=== PATIENT | female | born 1990 | race Caucasian/White ===

== ENCOUNTER 2017-08-25 12:00 | Inpatient (IN) | payer BC, MEDICAID, OTHER ==
[2017-08-25] MEDS ORDERED: SODIUM CHLORIDE 0.9% 1,000 ML IV STA (12:41)
--- NOTE | 2017-08-25 13:42 | ED ---
General Adult HPI - General Chief complaint: Psychiatric Symptoms Stated complaint: mental health Time Seen by Provider: 08/25/17 12:29 Source: patient, RN notes reviewed Mode of arrival: ambulatory Limitations: no limitations - History of Present Illness Initial comments: Patient's 27-year-old female presented to the emergency room today with friends. Friends states that he went to patient's house and was disheveled and patient was talking about paranoid delusions about people following her. Patient mitts that she's not been taking her medications. She admits that she' s been more confused lately. She states she's never had episodes like this in the past. She denies any cough, or cold. Denies any headaches. Denies any nausea, vomiting, diarrhea. Patient denies any pain. - Related Data Home Medications Medication Instructions Recorded Confirmed Ibuprofen [Motrin Ib] 400 mg PO Q6H PRN 08/25/17 08/25/17 Medroxyprogesterone Acetate 150 mg SQ Q90D 08/25/17 08/25/17 [Depo-Provera] Naproxen Sodium [Aleve] 220 - 440 mg PO DAILY PRN 08/25/17 08/25/17 Venlafaxine HCl [Effexor XR] 150 mg PO DAILY 08/25/17 08/25/17 Allergies Allergy/AdvReac Type Severity Reaction Status Date / Time No Known Allergies Allergy Verified 08/25/17 12:30 Review of Systems ROS Statement: Those systems with pertinent positive or pertinent negative responses have been documented in the HPI. ROS Other: All systems not noted in ROS Statement are negative. Past Medical History Past Medical History: No Reported History History of Any Multi-Drug Resistant Organisms: None Reported Past Surgical History: No Surgical Hx Reported Past Psychological History: Anxiety, Depression, PTSD Smoking Status: Former smoker Past Alcohol Use History: Daily Past Drug Use History: None Reported - Past Family History Mother Family Medical History: Cancer Additional Family Medical History / Comment(s): breast cancer Father Family Medical History: Prostate Disorder Additional Family Medical History / Comment(s): mental illness General Exam - General Exam Comments Initial Comments: General: The patient is awake and alert, in no distress, and does not appear acutely ill. Eye: Pupils are equal, round and reactive to light, extra-ocular movements are intact. No nystagmus. There is normal conjunctiva bilaterally. No signs of icterus. Ears, nose, mouth and throat: There are moist mucous membranes and no oral lesions. Neck: The neck is supple, there is no tenderness or JVD. Cardiovascular: There is a regular rate and rhythm. No murmur, rub or gallop is appreciated. Respiratory: Lungs are clear to auscultation, respirations are non-labored, breath sounds are equal. No wheezes, stridor, rales, or rhonchi. Gastrointestinal: Soft, non-distended, non-tender abdomen without masses or organomegaly noted. There is no rebound or guarding present. No CVA tenderness. Musculoskeletal: Normal ROM, no tenderness. Strength 5/5. Sensation intact. Pulses equal bilaterally 2+. Neurological: A&O x 3. CN II-XII intact, There are no obvious motor or sensory deficits. Coordination appears grossly intact. Speech is normal. Skin: Skin is warm and dry and no rashes or lesions are noted. Psychiatric: Cooperative. Limitations: no limitations Course Vital Signs 08/25/17 12:06 Temperature 98.6 F Pulse Rate 107 H Respiratory 16 Rate Blood Pressure 156/98 O2 Sat by Pulse 100 Oximetry Medical Decision Making - Medical Decision Making Patient's labs reviewed were unremarkable. Patient's was seen by mental health and admitted for psychiatric evaluation. - Lab Data Result diagrams: 08/26/17 10:53 08/26/17 10:53 Lab Results 08/25/17 08/25/17 08/25/17 Range/Units 12:12 12:12 13:15 WBC 7.6 (3.8-10.6) k/uL RBC 4.07 (3.80-5.40) m/uL Hgb 13.5 (11.4-16.0) gm/dL Hct 39.3 (34.0-46.0) % MCV 96.7 (80.0-100.0) fL MCH 33.1 (25.0-35.0) pg MCHC 34.2 (31.0-37.0) g/dL RDW 13.4 (11.5-15.5) % Plt Count 244 (150-450) k/uL Neutrophils % 74 % Lymphocytes % 19 % Monocytes % 5 % Eosinophils % 1 % Basophils % 0 % Neutrophils # 5.6 (1.3-7.7) k/uL Lymphocytes # 1.4 (1.0-4.8) k/uL Monocytes # 0.4 (0-1.0) k/uL Eosinophils # 0.1 (0-0.7) k/uL Basophils # 0.0 (0-0.2) k/uL Sodium (137-145) mmol/L Potassium (3.5-5.1) mmol/L Chloride (98-107) mmol/L Carbon Dioxide (22-30) mmol/L Anion Gap mmol/L BUN (7-17) mg/dL Creatinine (0.52-1.04) mg/dL Est GFR (CKD-EPI)AfAm (>60 ml/min/1.73 sqM) Est GFR (CKD-EPI)NonAf (>60 ml/min/1.73 sqM) Glucose (74-99) mg/dL Estimated Ave Glu mg/dL Hemoglobin A1c (4.0-6.0) % Calcium (8.4-10.2) mg/dL Total Bilirubin (0.2-1.3) mg/dL AST (14-36) U/L ALT (9-52) U/L Alkaline Phosphatase (38-126) U/L Total Protein (6.3-8.2) g/dL Albumin (3.5-5.0) g/dL Urine Color Yellow Urine Appearance Clear (Clear) Urine pH 7.5 (5.0-8.0) Ur Specific [place] 1.020 (1.001-1.035) Urine Protein Trace H (Negative) Urine Glucose (UA) Negative (Negative) Urine Ketones 1+ H (Negative) Urine Blood Negative (Negative) Urine Nitrite Negative (Negative) Urine Bilirubin Negative (Negative) Urine Urobilinogen 8.0 (<2.0) mg/dL Ur Leukocyte Esterase Trace H (Negative) Urine WBC 5 (0-5) /hpf Ur Squamous Epith Cells <1 (0-4) /hpf Urine Mucus Rare H (None) /hpf Urine HCG, Qual Not Detected (Not Detectd) Urine Opiates Screen Not Detected (NotDetected) Ur Oxycodone Screen Not Detected (NotDetected) Urine Methadone Screen Not Detected (NotDetected) Ur Propoxyphene Screen Not Detected (NotDetected) Ur Barbiturates Screen Not Detected (NotDetected) U Tricyclic Antidepress Not Detected (NotDetected) Ur Phencyclidine Scrn Not Detected (NotDetected) Ur Amphetamines Screen Not Detected (NotDetected) U Methamphetamines Scrn Not Detected (NotDetected) U Benzodiazepines Scrn Not Detected (NotDetected) Urine Cocaine Screen Not Detected (NotDetected) U Marijuana (THC) Screen Not Detected (NotDetected) 08/25/17 08/25/17 Range/Units 13:15 13:15 WBC (3.8-10.6) k/uL RBC (3.80-5.40) m/uL Hgb (11.4-16.0) gm/dL Hct (34.0-46.0) % MCV (80.0-100.0) fL MCH (25.0-35.0) pg MCHC (31.0-37.0) g/dL RDW (11.5-15.5) % Plt Count (150-450) k/uL Neutrophils % % Lymphocytes % % Monocytes % % Eosinophils % % Basophils % % Neutrophils # (1.3-7.7) k/uL Lymphocytes # (1.0-4.8) k/uL Monocytes # (0-1.0) k/uL Eosinophils # (0-0.7) k/uL Basophils # (0-0.2) k/uL Sodium 142 (137-145) mmol/L Potassium 4.1 (3.5-5.1) mmol/L Chloride 106 (98-107) mmol/L Carbon Dioxide 24 (22-30) mmol/L Anion Gap 12 mmol/L BUN 11 (7-17) mg/dL Creatinine 0.70 (0.52-1.04) mg/dL Est GFR (CKD-EPI)AfAm >90 (>60 ml/min/1.73 sqM) Est GFR (CKD-EPI)NonAf >90 (>60 ml/min/1.73 sqM) Glucose 94 (74-99) mg/dL Estimated Ave Glu mg/dL 100 Hemoglobin A1c 5.1 (4.0-6.0) % Calcium 9.4 (8.4-10.2) mg/dL Total Bilirubin 0.6 (0.2-1.3) mg/dL AST 30 (14-36) U/L ALT 46 (9-52) U/L Alkaline Phosphatase 109 (38-126) U/L Total Protein 7.9 (6.3-8.2) g/dL Albumin 4.5 (3.5-5.0) g/dL Urine Color Urine Appearance (Clear) Urine pH (5.0-8.0) Ur Specific [place] (1.001-1.035) Urine Protein (Negative) Urine Glucose (UA) (Negative) Urine Ketones (Negative) Urine Blood (Negative) Urine Nitrite (Negative) Urine Bilirubin (Negative) Urine Urobilinogen (<2.0) mg/dL Ur Leukocyte Esterase (Negative) Urine WBC (0-5) /hpf Ur Squamous Epith Cells (0-4) /hpf Urine Mucus (None) /hpf Urine HCG, Qual (Not Detectd) Urine Opiates Screen (NotDetected) Ur Oxycodone Screen (NotDetected) Urine Methadone Screen (NotDetected) Ur Propoxyphene Screen (NotDetected) Ur Barbiturates Screen (NotDetected) U Tricyclic Antidepress (NotDetected) Ur Phencyclidine Scrn (NotDetected) Ur Amphetamines Screen (NotDetected) U Methamphetamines Scrn (NotDetected) U Benzodiazepines Scrn (NotDetected) Urine Cocaine Screen (NotDetected) U Marijuana (THC) Screen (NotDetected) Disposition Clinical Impression: Acute psychosis Disposition: HOME SELF-CARE Condition: Stable Is patient prescribed a controlled substance at d/c from ED?: No
[2017-08-25 13:43] LABS: Basophils % (A) 0 %; Eosinophils # (A) 0.1 k/uL (0-0.7); Eosinophils % (A) 1 %; HCT 39.3 % (34.0-46.0); HGB 13.5 gm/dL (11.4-16.0); Lymphocytes # (A) 1.4 k/uL (1.0-4.8); Lymphocytes % (A) 19 %; MCH 33.1 pg (25.0-35.0); MCHC 34.2 g/dL (31.0-37.0); MCV 96.7 fL (80.0-100.0); Monocytes # (A) 0.4 k/uL (0-1.0); Monocytes % (A) 5 %; Neutrophils # (A) 5.6 k/uL (1.3-7.7); Neutrophils % (A) 74 %; Platelet Count 244 k/uL (150-450); RBC 4.07 m/uL (3.80-5.40); RDW 13.4 % (11.5-15.5); WBC 7.6 k/uL (3.8-10.6)
[2017-08-25 13:50] LABS: Appearance,Urine Clear (Clear); Bilirubin,Urine Negative (Negative); Blood,Urine Negative (Negative); Color,Urine Yellow; Glucose,Urine (UA) Negative (Negative); Ketones,Urine 1+ (Negative); Leukocyte Esterase,Urine Trace (Negative); Mucus,Urine Rare /hpf; Nitrite,Urine Negative (Negative); PH, Urine 7.5 (5.0-8.0); Protein,Urine Trace (Negative); Squamous Epithelial Cell,Urine <1 /hpf (0-4); WBC,Urine 5 /hpf (0-5)
[2017-08-25 13:51] LABS: Amphetamine Screen,Urine Not Detected (NotDetected); Barbiturate Screen,Urine Not Detected (NotDetected); Benzodiazepines Screen,Urine Not Detected (NotDetected); Cocaine Screen,Urine Not Detected (NotDetected); Methadone Screen, Urine Not Detected (NotDetected); Opiate Screen,Urine Not Detected (NotDetected); Oxycodone Screen, Urine Not Detected (NotDetected); Phencyclidine Screen,Urine Not Detected (NotDetected); Tricyclic Antidepressant,Urine Not Detected (NotDetected); Urn Cannabinoid Scrn Not Detected (NotDetected)
[2017-08-25 13:52] LABS: ALT 46 U/L (9-52); AST 30 U/L (14-36); Albumin 4.5 g/dL (3.5-5.0); Alkaline Phosphatase 109 U/L (38-126); Anion Gap 12 mmol/L; Blood Urea Nitrogen 11 mg/dL (7-17); Calcium 9.4 mg/dL (8.4-10.2); Carbon Dioxide 24 mmol/L (22-30); Chloride 106 mmol/L (98-107); Glucose 94 mg/dL (74-99); Potassium 4.1 mmol/L (3.5-5.1); Sodium 142 mmol/L (137-145); Total Bilirubin 0.6 mg/dL (0.2-1.3); Total Protein 7.9 g/dL (6.3-8.2)
[2017-08-25] MEDS ORDERED: LORazepam 1 MG TAB PO PRN (18:00)
[2017-08-25] MEDS ORDERED: ACETAMINOPHEN TAB 325 MG TAB PO PRN (18:00)
[2017-08-25] MEDS ORDERED: MAG HYDROX/AL HYDROX/SIMETH 30 ML CUP PO PRN (18:00)
[2017-08-25] MEDS ORDERED: ZIPRASIDONE 20 MG VIAL IM PRN (18:00)
[2017-08-25] MEDS ORDERED: MAGNESIUM HYDROXIDE 2,400 MG/10 ML CUP PO PRN (18:00)
[2017-08-25] MEDS ORDERED: IBUPROFEN 200 MG TAB PO PRN (18:04)
[2017-08-25] MEDS ORDERED: LORazepam 2 MG/ML INJ IM PRN (18:07)
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
[2017-08-26 01:02] LABS: Hemoglobin A1C 5.1 % (4.0-6.0)
[2017-08-26] MEDS: VENLAFAXINE HCL ER 150 MG CAP PO SCH (09:55)
[2017-08-26 11:23] LABS: Basophils % (A) 0 %; Eosinophils # (A) 0.1 k/uL (0-0.7); Eosinophils % (A) 1 %; HGB 14.7 gm/dL (11.4-16.0); Lymphocytes # (A) 1.5 k/uL (1.0-4.8); Lymphocytes % (A) 18 %; MCH 32.3 pg (25.0-35.0); MCHC 33.4 g/dL (31.0-37.0); MCV 96.9 fL (80.0-100.0); Mean Platelet Volume 7.2; Monocytes # (A) 0.4 k/uL (0-1.0); Monocytes % (A) 5 %; Neutrophils # (A) 6.3 k/uL (1.3-7.7); Neutrophils % (A) 74 %; Platelet Count 302 k/uL (150-450); RBC 4.54 m/uL (3.80-5.40); RDW 13.2 % (11.5-15.5); WBC 8.4 k/uL (3.8-10.6)
[2017-08-26 11:31] LABS: ALT 45 U/L (9-52); AST 29 U/L (14-36); Albumin 4.9 g/dL (3.5-5.0); Alkaline Phosphatase 111 U/L (38-126); Anion Gap 16 mmol/L; Blood Urea Nitrogen 10 mg/dL (7-17); Calcium 10.2 mg/dL (8.4-10.2); Carbon Dioxide 20 mmol/L (22-30); Chloride 106 mmol/L (98-107); Cholesterol 189 mg/dL (<200); Glucose 98 mg/dL (74-99); HDL Cholesterol 50 mg/dL (40-60); LDL Cholesterol,Calculated 115 mg/dL (0-99); Potassium 4.5 mmol/L (3.5-5.1); Sodium 142 mmol/L (137-145); Total Bilirubin 0.5 mg/dL (0.2-1.3); Total Protein 8.3 g/dL (6.3-8.2); Triglycerides 121 mg/dL (<150)
--- NOTE | 2017-08-26 14:55 | P.HP ---
Psychiatric H&P - . H&P Date: 08/26/17 History & Physical: Identification information: The patient is a 27-year-old female admitted to the psychiatric unit voluntarily. History of present illness: According to the EPS assessment, her friends to brought her to the emergency room and left because they "thought something was wrong." She provided little information to the EPS nurse and responses to questions were tangential. She she admitted to using "mushrooms in CBD." She was irritable and uncooperative. She stated that she is told "everyone" and does not need to repeat herself. She went to her room, laid down on her bed crossed her arms over her chest and refused to answer further questions. Past psychiatric history: She denied prior psychiatric hospitalizations. She admitted to prior mental health treatment but would not elaborate. When asked her where she received mental health services she replied "around here". Substance use history: She would not answer questions about her use of drugs or alcohol. Family mental health/substance use history: Unknown Social history: She was concerned about the whereabouts of her daughter. She refused to answer questions about her social history. Mental status examination: She presented as moderately obese 27-year-old female who is irritable and uncooperative. She did not make eye contact but appeared to attend to the interview. She had no distinguishing features or prominent physical abnormalities. She had a distressed and angry facial expression. She was alert and oriented to person. She was restless but displayed no abnormal movements. Her speech was spontaneous loud and at times inappropriate. Her affect was dysphoric, angry, anxious and irritable. She would not answer questions about suicidality or homicidality. She would not answer questions about depressive cognitions. She did not express clear ideas reference, paranoid ideation or delusions. Her thinking was concrete and associations did not appear coherent, logical and goal directed. She did not appear to be responding to internal stimuli. Allergies Allergy/AdvReac Type Severity Reaction Status Date / Time No Known Allergies Allergy Verified 08/25/17 12:30 Vital Signs Temp 99.0 F 08/26/17 06:16 Pulse 99 08/26/17 06:16 Resp 16 08/26/17 06:16 BP 140/92 08/26/17 06:16 Pulse Ox 100 08/25/17 12:06 Intake & Output 08/25/17 08/26/17 08/26/17 18:59 06:59 18:59 Weight 94.347 kg Laboratory Last Values WBC 8.4 k/uL (3.8-10.6) 08/26/17 10:53 RBC 4.54 m/uL (3.80-5.40) 08/26/17 10:53 Hgb 14.7 gm/dL (11.4-16.0) 08/26/17 10:53 Hct 44.0 % (34.0-46.0) 08/26/17 10:53 MCV 96.9 fL (80.0-100.0) 08/26/17 10:53 MCH 32.3 pg (25.0-35.0) 08/26/17 10:53 MCHC 33.4 g/dL (31.0-37.0) 08/26/17 10:53 RDW 13.2 % (11.5-15.5) 08/26/17 10:53 Plt Count 302 k/uL (150-450) 08/26/17 10:53 Neutrophils % 74 % 08/26/17 10:53 Lymphocytes % 18 % 08/26/17 10:53 Monocytes % 5 % 08/26/17 10:53 Eosinophils % 1 % 08/26/17 10:53 Basophils % 0 % 08/26/17 10:53 Neutrophils # 6.3 k/uL (1.3-7.7) 08/26/17 10:53 Lymphocytes # 1.5 k/uL (1.0-4.8) 08/26/17 10:53 Monocytes # 0.4 k/uL (0-1.0) 08/26/17 10:53 Eosinophils # 0.1 k/uL (0-0.7) 08/26/17 10:53 Basophils # 0.0 k/uL (0-0.2) 08/26/17 10:53 Sodium 142 mmol/L (137-145) 08/25/17 13:15 Potassium 4.1 mmol/L (3.5-5.1) 08/25/17 13:15 Chloride 106 mmol/L (98-107) 08/25/17 13:15 Carbon Dioxide 24 mmol/L (22-30) 08/25/17 13:15 Anion Gap 12 mmol/L 08/25/17 13:15 BUN 11 mg/dL (7-17) 08/25/17 13:15 Creatinine 0.70 mg/dL (0.52-1.04) 08/25/17 13:15 Est GFR (CKD-EPI)AfAm >90 (>60 ml/min/1.73 sqM) 08/25/17 13:15 Est GFR (CKD-EPI)NonAf >90 (>60 ml/min/1.73 sqM) 08/25/17 13:15 Glucose 94 mg/dL (74-99) 08/25/17 13:[address] Glu mg/dL 100 08/25/17 13:15 Hemoglobin A1c 5.1 % (4.0-6.0) 08/25/17 13:15 Calcium 9.4 mg/dL (8.4-10.2) 08/25/17 13:15 Total Bilirubin 0.6 mg/dL (0.2-1.3) 08/25/17 13:15 AST 30 U/L (14-36) 08/25/17 13:15 ALT 46 U/L (9-52) 08/25/17 13:15 Alkaline Phosphatase 109 U/L (38-126) 08/25/17 13:15 Total Protein 7.9 g/dL (6.3-8.2) 08/25/17 13:15 Albumin 4.5 g/dL (3.5-5.0) 08/25/17 13:15 Urine Color Yellow 08/25/17 12:12 Urine Appearance Clear (Clear) 08/25/17 12:12 Urine pH 7.5 (5.0-8.0) 08/25/17 12:12 Ur Specific [place] 1.020 (1.001-1.035) 08/25/17 12:12 Urine Protein Trace (Negative) H 08/25/17 12:12 Urine Glucose (UA) Negative (Negative) 08/25/17 12:12 Urine Ketones 1+ (Negative) H 08/25/17 12:12 Urine Blood Negative (Negative) 08/25/17 12:12 Urine Nitrite Negative (Negative) 08/25/17 12:12 Urine Bilirubin Negative (Negative) 08/25/17 12:12 Urine Urobilinogen 8.0 mg/dL (<2.0) 08/25/17 12:12 Ur Leukocyte Esterase Trace (Negative) H 08/25/17 12:12 Urine WBC 5 /hpf (0-5) 08/25/17 12:12 Ur Squamous Epith Cells <1 /hpf (0-4) 08/25/17 12:12 Urine Mucus Rare /hpf (None) H 08/25/17 12:12 Urine HCG, Qual Not Detected (Not Detectd) 08/25/17 12:12 Urine Opiates Screen Not Detected (NotDetected) 08/25/17 12:12 Ur Oxycodone Screen Not Detected (NotDetected) 08/25/17 12:12 Urine Methadone Screen Not Detected (NotDetected) 08/25/17 12:12 Ur Propoxyphene Screen Not Detected (NotDetected) 08/25/17 12:12 Ur Barbiturates Screen Not Detected (NotDetected) 08/25/17 12:12 U Tricyclic Antidepress Not Detected (NotDetected) 08/25/17 12:12 Ur Phencyclidine Scrn Not Detected (NotDetected) 08/25/17 12:12 Ur Amphetamines Screen Not Detected (NotDetected) 08/25/17 12:12 U Methamphetamines Scrn Not Detected (NotDetected) 08/25/17 12:12 U Benzodiazepines Scrn Not Detected (NotDetected) 08/25/17 12:12 Urine Cocaine Screen Not Detected (NotDetected) 08/25/17 12:12 U Marijuana (THC) Screen Not Detected (NotDetected) 08/25/17 12:12 08/26/17 11:38 08/26/17 14:53 Assessment and Plan Assessment: She is a 27-year-old female who would not cooperate with the admission assessment. She reported a history of use of hallucinogenic and cannabidiols to the admission nurse. We will need additional information either from her when she is less irritable and uncooperative or from family when she gives permission. She may be recovering from the effects of hallucination and cannabinoids intoxication. She has mood symptoms and paranoia. She cannot be treated inpatient basis until we can clarify her history and her thinking and mood is more stable and organized. (1) Hallucinogen use, unspecified with hallucinogen-induced mood disorder Current Visit: Yes Status: Acute Code(s): F16.94 - HALLUCINOGEN USE, UNSP W HALLUCINOGEN-INDUCED MOOD DISORDER SNOMED Code(s): 4320520 (2) Cannabis use, unspecified with psychotic disorder, unspecified Current Visit: Yes Status: Acute Code(s): F12.959 - CANNABIS USE, UNSP WITH PSYCHOTIC DISORDER, UNSPECIFIED SNOMED Code(s): 875060962 (3) Uncooperative behavior Current Visit: Yes Status: Acute Code(s): F91.9 - CONDUCT DISORDER, UNSPECIFIED SNOMED Code(s): 147570409 Plan: Admit to the psychiatric unit. Safety precautions. Ativan 1 mg by mouth 3 times a day when necessary and/or 1 mg IM 3 times a day when necessary for agitation or anxiety. Geodon 20 mg IM twice a day when necessary for agitation acute psychosis. Continue Effexor XR 150 mg daily. Obtain collateral information from family. Evaluate clinical status response to treatment daily basis. Encourage participation in therapeutic groups and activities.
[2017-08-26 19:32] LABS: Mucus,Urine Rare /hpf; RBC,Urine 1 /hpf (0-5); Squamous Epithelial Cell,Urine 1 /hpf (0-4); WBC,Urine 2 /hpf (0-5)
[2017-08-26 19:34] LABS: Appearance,Urine Clear (Clear); Bilirubin,Urine Negative (Negative); Blood,Urine Negative (Negative); Color,Urine Yellow; Glucose,Urine (UA) Negative (Negative); Ketones,Urine 1+ (Negative); Leukocyte Esterase,Urine Small (Negative); Nitrite,Urine Negative (Negative); Protein,Urine Negative (Negative); Urobilinogen,Urine <2.0 mg/dL (<2.0)
[2017-08-27] MEDS: VENLAFAXINE HCL ER 150 MG CAP PO SCH (08:53)
[2017-08-27] MEDS: ARIPiprazole 5 MG TAB PO SCH (13:36)
--- NOTE | 2017-08-27 16:47 | P.PN ---
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 I reviewed the medical record, interviewed the patient and discussed her treatment and treatment plan during team meeting. She is less irritable and uncooperative than yesterday. She was unable to explain the reason for her presentation. When I asked her why she came to the hospital she replied "my friends brought me here." She admitted that she is received mental health treatment in the past and talked about going to [facility] and [facility]. One of her past psychiatrist was Dr. Li. I left a message to speak with him. She has not attended therapeutic groups or activities. She slept 6 hours last night. She had no episodes of behavioral dyscontrol and has not required administration of when necessary medications for agitation or anxiety. Objective - Vital Signs Vital signs: Vital Signs Temp 98.2 F 08/27/17 04:08 Pulse 113 H 08/27/17 04:08 Resp 16 08/27/17 04:08 BP 169/78 08/27/17 04:08 Pulse Ox 100 08/25/17 12:06 - Psychiatric Psychiatric Comment(s): She presented as a slightly disheveled appearing 19-year-old female who was emotionally labile. She made eye contact and appeared to attend to the interview. She had a distressed facial expression and cried during the interview. She was restless but not agitated. Her speech was spontaneous and the rhythm and volume was consistent with her affect. She was labile and occasionally displayed emotional dyscontrol. She denied suicidal ideation or wishes. She denied homicidal ideation. She expressed feeling hopeless and helpless. Her thinking was not organized at times appeared logical. She did not express clear ideas reference, paranoid ideation, magical and she delusional thoughts. She denied hallucinations and did not appear to be responding to internal stimuli. - Labs CBC & Chem 7: 08/26/17 10:53 08/26/17 10:53 Labs: Abnormal Lab Results - Last 24 Hours (Table) 08/26/17 Range/Units 19:25 Urine Ketones 1+ H (Negative) Ur Leukocyte Esterase Small H (Negative) Urine Mucus Rare H (None) /hpf Microbiology - Last 24 Hours (Table) 08/25/17 12:12 Urine Culture - Final Urine,Voided Assessment and Plan Assessment: She is less irritable, angry and uncooperative. She is waiting emotional lability and emotional dyscontrol. She has no insight or understanding of the reason for the admission. (1) Hallucinogen use, unspecified with hallucinogen-induced mood disorder Current Visit: Yes Status: Acute Code(s): F16.94 - HALLUCINOGEN USE, UNSP W HALLUCINOGEN-INDUCED MOOD DISORDER SNOMED Code(s): 9604497 (2) Cannabis use, unspecified with psychotic disorder, unspecified Current Visit: Yes Status: Acute Code(s): F12.959 - CANNABIS USE, UNSP WITH PSYCHOTIC DISORDER, UNSPECIFIED SNOMED Code(s): 445322512 (3) Uncooperative behavior Current Visit: Yes Status: Acute Code(s): F91.9 - CONDUCT DISORDER, UNSPECIFIED SNOMED Code(s): 326854640 Plan: Continue inpatient hospitalization. Safety precautions. Begin Abilify 5 mg daily. Decrease Effexor to 75 mg daily. Obtain collateral information from family. Encourage participation in therapeutic groups and activities. Evaluate clinical status response to treatment on a daily basis.
[2017-08-28] MEDS: VENLAFAXINE HCL ER 75 MG CAP PO SCH (08:02)
[2017-08-28] MEDS: ARIPiprazole 5 MG TAB PO SCH (08:02)
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
[2017-08-29] MEDS: VENLAFAXINE HCL ER 75 MG CAP PO SCH (08:22)
[2017-08-29] MEDS: ARIPiprazole 5 MG TAB PO SCH (08:22)
--- NOTE | 2017-08-29 19:34 | PN ---
PROGRESS NOTE DATE OF SERVICE: 08/29/2017. CHIEF COMPLAINT: The patient was confused and disorganized. She admitted to using hallucinogenic mushrooms. She had significant mood changes. INTERVAL HISTORY: Patient has been doing fair. She had a quiet evening last night. She slept 6 hours. She has been up. She had not been attending any groups yesterday with encouragement. She started attending groups today. She has been appropriate in group. She comes out in the day area. She interacts with others. She does not provide much information about her use of drugs. Urine drug screen was negative for all substances. She was able to acknowledge issues she has with poor self-esteem. She talked about some of the difficulties in her growing up. Her father was alcoholic and mother she described as his "enabler." Parents are . She has had minimal contact with her father which she acknowledges has been a chronic grief issue for her. She was able to talk about some of her aspirations including having done some college work hoping towards getting into [employer]. She notes that overall her mood has improved and she feels that her thoughts are clear. She tolerates psychotropic medications. MENTAL STATUS: Patient gave fair eye contact. She was somewhat restless. She answered questions with direct responses. Her thoughts were clear. At times, she smiled and seemed to be invasive and in some of what she talked about. She seemed to minimize some issues that seem to be significant emotional problems for her. Her affect was anxious. Her mood dysphoric. She seemed moderately distressed. There was no indication of thought disorder. ASSESSMENT: I will continue the current diagnosis and treatment plan. We will continue to engage the patient in individual and group therapeutic activities. I will continue psychotropic medications the same including Effexor XR 75 mg a day and Abilify 5 mg a day. I had an extensive discussion with the patient regarding medications in terms of indication, potential side effects as well as metabolic concerns relating to Abilify. We discussed her aspirations including plans to moved to [place] very soon. We will continue to focus on stabilization and discharge planning. I reviewed the medical record and reviewed progress with staff. The patient was interviewed. IRVIN / RICHIE: [id number] /
[2017-08-30] MEDS: ARIPiprazole 5 MG TAB PO SCH (08:18)
[2017-08-30] MEDS: VENLAFAXINE HCL ER 75 MG CAP PO SCH (08:18)
--- NOTE | 2017-08-30 11:11 | PN ---
PROGRESS NOTE DATE OF SERVICE: 08/30/2017. CHIEF COMPLAINT: The patient was confused and disorganized. She admitted to using hallucinogenic mushrooms. She had significant mood changes. INTERVAL HISTORY: Patient has been doing fairly well. She had a quiet evening last night. She slept well today. She has been up. She attends groups. She says she is comfortable in groups and has contributed. She feels that her mood has been improving. Her Effexor dose has been decreased from 150 mg down to 75 mg. She continues on Abilify. She had been on Effexor for about 1 year. She said initially it was started for depression and PTSD. Her plans are to move to [place] in the near future. She says the only factor holding things back at this point is setting up living arrangements. She has a number of family that live in the [facility] area. She has a car and drives. She and her 6-year-old daughter will be moving soon as soon as residence can be figured out. She says that her mood has improved since she came into the hospital. She feels her thoughts are much clearer. Staff have not noted any disorganized thoughts or mood changes that were noted on admission. She tolerates psychotropic medications. Patient had a family meeting last evening at 7:00 pm. There were no notes yet in the chart regarding that. They reviewed her current situation and discharge planning. MENTAL STATUS: Patient had some restlessness. She gave fair eye contact. She tended to look off to one side or the other and occasionally would come to direct eye gaze though momentarily. She answered questions with direct responses. Her thoughts were clear. Her affect was blunted. Her mood was quiet. She did not appear to be distressed. There was no indication of thought disorder. Her thoughts were organized and coherent. ASSESSMENT: I will continue the current diagnosis and treatment plan. I will continue psychotropic medications the same. The patient has been making progress. Anticipate the patient being discharged early in the week. MMODL / IJN: [id number] /
[2017-08-31] MEDS: ARIPiprazole 5 MG TAB PO SCH (09:45)
[2017-08-31] MEDS: VENLAFAXINE HCL ER 75 MG CAP PO SCH (09:45)
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
[2017-09-01] MEDS: ARIPiprazole 5 MG TAB PO SCH (08:36)
[2017-09-01] MEDS: VENLAFAXINE HCL ER 75 MG CAP PO SCH (08:36)
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
[2017-09-02 06:57] VITALS: BP 147/88; PULSE 99; RESP 16; TEMP 98.1
[2017-09-02] MEDS: ARIPiprazole 5 MG TAB PO SCH (08:25)
[2017-09-02] MEDS: VENLAFAXINE HCL ER 75 MG CAP PO SCH (08:25)
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
== END 2017-09-02 14:48 | disposition home or self-care (01) | DRG 897 ==
LOC: EC 12:00 → 3MHU 16:33
PROVIDERS: ADMIT Psychiatry & Neurology Psychiatry; ATTEND Psychiatry & Neurology Psychiatry
DX: F16.14 Hallucinogen abuse with hallucinogen-induced mood disorder (principal); F12.988 Cannabis use, unspecified with other cannabis-induced disorder; F32.9 Major depressive disorder, single episode, unspecified; F43.10 Post-traumatic stress disorder, unspecified; Z79.899 Other long term (current) drug therapy; Z80.3 Family history of malignant neoplasm of breast; Z81.8 Family history of other mental and behavioral disorders; Z87.891 Personal history of nicotine dependence; F91.9 Conduct disorder, unspecified; Z91.410 Personal history of adult physical and sexual abuse; E66.9 Obesity, unspecified; Z68.34 Body mass index [BMI] 34.0-34.9, adult
CPT/HCPCS: 36415; 80053; 80061; 80306; 81001; 81025; 82075; 83036; 84443; 85025; 87086; 99285